=== PATIENT | female | born 1945 | race Caucasian/White ===

== ENCOUNTER 2020-01-19 14:28 | Emergency (ER) | payer MEDICARE, OTHER ==
[~2020-01-19] VITALS: Ht 162.6 cm; Wt 54.4 kg
[~2020-01-19 14:28] MED LIST: VICODIN1 TAB PO
[2020-01-19 14:33] VITALS: BP 106/50
--- NOTE | 2020-01-19 14:43 | NUR ---
ED Nurse Note: Patient from home and brought in by [id number] due to left hip pain S/P fall 5 days ago. Per pt, she tripped and fell on her house then landed on her left hip. Pt also states that she had history of left knee fracture and that she is unabke to ambulate steadily. Pt is AAO x4, ambulates using a cane, follows commands. Noted small bruising on left hip.
--- NOTE | 2020-01-19 15:00 | NUR ---
ED Nurse Note: Dr Kyle at the bed side.
--- NOTE | 2020-01-19 16:05 | NUR ---
ED Nurse Note: Aguilar Liao MD-
--- NOTE | 2020-01-19 16:10 | NUR ---
ED Nurse Note: Collected blood specimen then sent.
--- NOTE | 2020-01-19 16:14 | Diagnostic Imaging Report ---
INDICATION: Pain TECHNIQUE: Frontal and frog-leg views of the left hip; frontal view of the pelvis COMPARISON: Left hip radiograph dated 12/10/2011 FINDINGS: The patient is status post bilateral total hip arthroplasties, with interval left hip arthroplasty since most recent examination. The right hip arthroplasty demonstrates no evidence of hardware-related complication. Pelvic bones are intact. Sacroiliac joints demonstrate degenerative changes. Symphysis pubis is preserved. There is an acute periprosthetic left femoral neck fracture with extends through the greater trochanter. The trochanteric fragment demonstrates mild distraction on frog-leg view. No evidence of dislocation. There is diffuse soft tissue swelling on the left hip. There are multilevel discogenic degenerative changes of the visualized spine. IMPRESSION: Acute left periprosthetic hip fracture with mild distraction of the greater trochanter. No evidence of dislocation.
--- NOTE | 2020-01-19 16:39 | NUR ---
ED Nurse Note: Covid19 swab sent.
[2020-01-19 16:50] LABS: EOSINOPHILS % (AUTO) 2.6 % (0.0-3.0); HEMOGLOBIN 11.5 G/DL (12.0-16.0); LYMPHOCYTES % (AUTO) 26.9 % (20.0-45.0); MEAN CORPUSCULAR VOLUME 93 FL (80-99); NEUTROPHILS % (AUTO) 56.5 % (45.0-75.0); PLATELET COUNT 195 K/UL (150-450); RED BLOOD COUNT 3.77 M/UL (4.20-5.40); RED CELL DISTRIBUTION WIDTH 14.2 % (11.6-14.8); WHITE BLOOD COUNT 6.1 K/UL (4.8-10.8)
[2020-01-19 16:52] LABS: INR 0.9 (0.9-1.1)
[2020-01-19 16:57] LABS: ANION GAP 9 mmol/L (5-15); BLOOD UREA NITROGEN 14 mg/dL (7-18); CALCIUM 9.1 MG/DL (8.5-10.1); CARBON DIOXIDE 30 MMOL/L (21-32); CHLORIDE 102 MMOL/L (98-107); CREATININE 0.8 MG/DL (0.55-1.30); POTASSIUM 3.7 MMOL/L (3.5-5.1); SODIUM 141 MMOL/L (136-145)
[2020-01-19 17:00] VITALS: BP 118/65
[2020-01-19 17:02] LABS: ALANINE AMINOTRANSFERASE 14 U/L (12-78); ALBUMIN 3.3 G/DL (3.4-5.0); ALBUMIN/GLOBULIN RATIO 0.9 (1.0-2.7); ALKALINE PHOSPHATASE 72 U/L (46-116); ASPARTATE AMINO TRANSFERASE 19 U/L (15-37); BILIRUBIN,TOTAL 0.7 MG/DL (0.2-1.0)
--- NOTE | 2020-01-19 18:26 | NUR ---
ED Nurse Note: Report given to Siobhan AVILEZ of [facility].
[2020-01-19 18:31] VITALS: BP 121/47
--- NOTE | 2020-01-19 18:39 | Emergency Room Report ---
History of Present Illness General Chief Complaint: Multiple Trauma/Fall Source: Patient Present Illness HPI 74-year-old female presents to ED complaining of left hip pain. Brought in by EMS from home. States that she fell 5 days ago at home onto her left hip. States that the pain was not getting better so she called 911. States she is able to bear weight but has difficulty walking. Pain is dull, 10 out of 10, radiating down the left leg. States she is had previous hip surgeries. No other aggravating relieving factors. 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 Patient History Past Medical History: none Past Surgical History: other - hip surgery Pertinent Family History: none Social History: Denies: smoking, alcohol use, drug use Now: No Immunizations: UTD Reviewed Nursing Documentation: PMH: Agreed; PSxH: Agreed Nursing Documentation-PMH Hx Cardiac Problems: Yes Review of Systems All Other Systems: negative except mentioned in HPI Physical Exam Vital Signs Date Time Temp Pulse Resp B/P (MAP) Pulse Ox O2 Delivery O2 Flow Rate FiO2 01/19/20 14:33 97.3 88 18 106/50 (68) 98 Room Air Sp02 EP Interpretation: reviewed, normal General Appearance: no apparent distress, alert, GCS 15, non-toxic Head: normocephalic, atraumatic Eyes: bilateral eye normal inspection, bilateral eye PERRL ENT: hearing grossly normal, normal pharynx, no angioedema, normal voice Neck: full range of motion, supple/symm/no masses Respiratory: chest non-tender, lungs clear, normal breath sounds, speaking full sentences Cardiovascular #1: regular rate, rhythm, no edema Cardiovascular #2: 2+ carotid (R), 2+ carotid (L), 2+ radial (R), 2+ radial (L), 2+ dorsalis pedis (R), 2+ dorsalis pedis (L) Gastrointestinal: normal bowel sounds, non tender, soft, non-distended, no guar ding, no rebound Rectal: deferred Genitourinary: normal inspection, no CVA tenderness Musculoskeletal: back normal, normal range of motion, gait/station normal, tender - L hip TTP Neurologic: alert, motor strength/tone normal, oriented x3, sensory intact, responsive, speech normal Psychiatric: judgement/insight normal, memory normal, mood/affect normal, no suicidal/homicidal ideation Reflexes: 3+ bicep (R), 3+ bicep (L), 3+ tricep (R), 3+ tricep (L), 3+ knee (R), 3+ knee (L) Skin: no rash Lymphatic: no adenopathy Medical Decision Making Diagnostic Impression: Primary Impression: Periprosthetic hip fracture Qualified Codes: M97.8XXA - Periprosthetic fracture around other internal prosthetic joint, initial encounter; Z96.649 - Presence of unspecified artif icial hip joint ER Course Hospital Course 74-year-old female presents with left hip pain status post fall Differential diagnoses include: fracture, dislocation, contusion Clinical course Patient placed on stretcher. After initial history and physical I ordered x- rays left hip X-rays show a periprosthetic fracture involving the greater trochanter with mild distraction discussed with her ortho Dr Liao who requested patient be transferred to [facility]. Labs reviewed- no leukocytosis noted, electrolytes okay, hemoglobin/hematocrit okay i. I feel this is a highly complex case requiring extensive working including EKG/Rhythm strip, Xray/CT/US, Blood/urine lab work, repeat exams while in ED, and administration of strong opiates/narcotics for pain control, admission to hospital or close patient follow up. Diagnosis - periprosthetic hip fracture Transferred in serious condition Laboratory Tests Test 01/19/20 16:10 White Blood Count 6.1 K/UL (4.8-10.8) Red Blood Count 3.77 M/UL (4.20-5.40) L Hemoglobin 11.5 G/DL (12.0-16.0) L Hematocrit 35.0 % (37.0-47.0) L Mean Corpuscular Volume 93 FL (80-99) Mean Corpuscular Hemoglobin 30.5 PG (27.0-31.0) Mean Corpuscular Hemoglobin Concent 32.8 G/DL (32.0-36.0) Red Cell Distribution Width 14.2 % (11.6-14.8) Platelet Count 195 K/UL (150-450) Mean Platelet Volume 6.9 FL (6.5-10.1) Neutrophils (%) (Auto) 56.5 % (45.0-75.0) Lymphocytes (%) (Auto) 26.9 % (20.0-45.0) Monocytes (%) (Auto) 13.0 % (1.0-10.0) H Eosinophils (%) (Auto) 2.6 % (0.0-3.0) Basophils (%) (Auto) 1.0 % (0.0-2.0) Prothrombin Time 10.5 SEC (9.30-11.50) Prothromb Time International Ratio 0.9 (0.9-1.1) Sodium Level 141 MMOL/L (136-145) Potassium Level 3.7 MMOL/L (3.5-5.1) Chloride Level 102 MMOL/L (98-107) Carbon Dioxide Level 30 MMOL/L (21-32) Anion Gap 9 mmol/L (5-15) Blood Urea Nitrogen 14 mg/dL (7-18) Creatinine 0.8 MG/DL (0.55-1.30) Estimat Glomerular Filtration Rate > 60 mL/min (>60) Glucose Level 92 MG/DL (74-106) Calcium Level 9.1 MG/DL (8.5-10.1) Total Bilirubin 0.7 MG/DL (0.2-1.0) Aspartate Amino Transf (AST/SGOT) 19 U/L (15-37) Alanine Aminotransferase (ALT/SGPT) 14 U/L (12-78) Alkaline Phosphatase 72 U/L (46-116) Total Protein 6.8 G/DL (6.4-8.2) Albumin 3.3 G/DL (3.4-5.0) L Globulin 3.5 g/dL Albumin/Globulin Ratio 0.9 (1.0-2.7) L Last Vital Signs Date Time Temp Pulse Resp B/P (MAP) Pulse Ox O2 Delivery O2 Flow Rate FiO2 01/19/20 18:31 97.9 76 16 121/47 99 Room Air Status: improved Disposition: SHORT-TERM HOSP Condition: Serious Referrals: Ino dOen MD (PCP) Costa Kyle MD Jan 19, 2020 18:39
[2020-01-19 19:05] VITALS: BP 128/60
--- NOTE | 2020-01-19 19:05 | NUR ---
ED Nurse Note: Patient transferred to [facility] with all her belongings. Pt stable for transfer.
== END 2020-01-19 19:05 | disposition short-term general hospital (02) ==
LOC: EDBD 14:28 → EMR 16:22
DX: M97.02XA Periprosthetic fracture around internal prosthetic left hip joint, initial encounter (principal); W19.XXXA Unspecified fall, initial encounter; Y92.9 Unspecified place or not applicable; Z20.828 Contact with and (suspected) exposure to other viral communicable diseases; Z88.2 Allergy status to sulfonamides
CPT/HCPCS: 73502; 80053; 85025; 85610; 99283; U0002